=== PATIENT | female | born 1990 | race Caucasian/White ===

== ENCOUNTER → 2019-10-08 09:41 | Outpatient (CLI) | payer BC, SELFPAY ==
--- NOTE | ~2019-10-08 | MR_ITS ---
EXAMINATION: MRA brain wo con DATE: 10/08/2019 10:50 INDICATION: Family history of cerebral aneurysm. TECHNIQUE: Magnetic resonance angiography (MRA) of the brain was performed without intravenous contra st with T1-weighted SPGR by the 3D [id number] technique. Maximum intensity projection 3D-reconstr uctions were obtained. COMPARISON: None. FINDINGS: Left vertebral artery is dominant. There is no significant stenosis of basilar artery or the posterio r cerebral arteries. There is no significant stenosis of the intracranial internal carotid arteries o r anterior or middle cerebral arteries. Anterior communicating artery is normal. The posterior commun icating arteries are normal. There is no aneurysm. IMPRESSION: 1. Normal head MRA. Reviewed, dictated and finalized at location A. IMPRESSION: 1. Normal head MRA.
== END ==
PROVIDERS: PCP Physician Assistant Medical; Visit Provider Physician Assistant Medical
DX: R51 Headache (principal)
CPT/HCPCS: 70544

== ENCOUNTER 2024-07-24 16:33 | Emergency (ER) | payer OTHER, SELFPAY ==
--- NOTE | ~2024-07-24 | XR_ITS ---
XR chest 1V portable Ordering provider: Darci Estevez MD History: 33 years Female with . PALPITATION . Comparison: None. FINDINGS: MEDIASTINUM: The cardiac silhouette is not enlarged. LUNGS: No infiltrates, effusions or pneumothorax. OTHER: No free air under the diaphragm. IMPRESSION: No acute cardiopulmonary pathology Reviewed, dictated and finalized at location A.
--- NOTE | 2024-07-24 16:35 | ECG_ITS ---
Test Date: 2024-07-24 17:14:24 Measurements Intervals [place] Rate: 80 P: 47 [place]: 130 QRS: 54 QRSD: 93 T: 69 QT: 361 QTc: 417 Interpretive Statements SINUS RHYTHM No previous ECG available for comparison Electronically Signed On 07-26-2024 15:13:27 CDT by José Manuel Rome M.D.
--- OUTSIDE RECORDS SUMMARY | 2024-07-24 16:36 | XMS_ITS | Encounter Summary ---
Author Organization [facility] Address [facility] [place] [address] Care Team Providers Care Building Performance Consultant Name Role Phone Yann Gunderson MD Unavailable [phone] Patito Duffy Primary Care Provider [phone] Encounter Details Date Type Department Care Team (Late st Contact Info) Description 04/21/2020 Prep for Procedure [facility] Day Services [address] [place] [address] Concepción Maurer MD [address] [facility] [address] [place] [address] Social History Tobacco Use Types Packs/Day Years Used Date Smoking Tobacco: Never Smokeless Tobacco: Never Alcohol Use Standard Drinks/Week Comments Never 0 (1 standard drink = 0.6 oz pur e alcohol) rare AUDIT-C Answer Date Recorded Frequency of Alcohol Consumption Never 09/29/2018 Average Number of Drinks Not on file 019 Frequency of Binge Drinking Not on file 09/14 Comments No Sex and Gender Information Value Date Recorded Sex Assigned at Not on file Legal Sex Female 8:27 PM CDT Gender Identity Not on file Sexual Orientation Not on file COVID-19 Exposure Response Date Recorded In the last month, have you been in contact with someone who was confirmed or suspected to have Coronavirus / COVID-19? Yes 04/05/2020 2:31 PM CLIENT FINANCE ANALYST documented as of this encounter Plan of Treatment Not on file documented as of this encounter Results * PRE-SURGICAL/PRE-PROCEDURE CORONAVIRUS (COVID 19) (04/25/2020 9:28 AM CLIENT FINANCE ANALYST) CORONAVIRUS SARS COV 2 PCR (RESP) NOT DETECTED NOT DETECTED 04/26/2020 3:30 PM [facility] Comment: A Not Detected (negative) test result for this test means that SARS- CoV-2 RNA was not present in the specimen above the limit of detection. A negative result does not rule out the possibility of COVID-19 and should not be used as the sole basis for treatment or patient management decisions. If COVID-19 is still suspected, based on exposure history together with other clinical findings, re-testing should be considered in consultation with public health authorities. Laboratory test results should always be considered in the context of clinical observations and epidemiological data in making a final diagnosis and patient management decisions. Please review the Fact Sheets and FDA authorized labeling available for health care providers and patients using the following websites: [email or web address]/home/Covid-19/HCP/NAAT/fact-sheet2 https://[email or web address]rippeo/home/Covid-19/Patients/NAAT/ fact-sheet2 This test has been authorized by the FDA under an Emergency Use Authorization (EUA) for use by authorized laboratories. Due to the current public health emergency, [facility] is receiving a high volume of samples from a wide variety of swabs and media for COVID-19 testing. In order to serve patients during this public health crisis, samples from appropriate clinical sources are being tested. Negative test results derived from specimens received in non-commercially manufactured viral collection and transport media, or in media and sample collection kits not yet authorized by FDA for COVID-19 testing should be cautiously evaluated and the patient potentially subjected to extra precautions such as additional clinical monitoring, including collection of an additional specimen. Methodology: Nucleic Acid Amplification Test (NAAT) includes RT-PCR or TMA Additional information about COVID-19 can be found at the [employer] website: [email or web address]/Covid19. Test performed at [facility] [address] [place] [address] Director: TIFFANIE BOLANOS DO,MPH FIRST TEST NO 04/25/2020 9:28 AM [facility] EMPLOYED IN HEALTHCARE NO 04/25/2020 9:28 AM [facility] SYMPTOMATIC DEFINED BY CDC NO 04/25/2020 9:28 AM CLIENT FINANCE ANALYST [facility] DATE OF SYMPTOM ONSET UNKNOWN 04/25/2020 9:36 AM CLIENT FINANCE ANALYST [facility] HOSPITALIZATION STATUS NO 04/25/2020 9:28 AM CLIENT FINANCE ANALYST [facility] PATIENT IN ICU NO 04/25/2020 9:28 AM CLIENT FINANCE ANALYST [facility] RESIDENT OF [facility] NO 04/25/2020 9:28 AM CLIENT FINANCE ANALYST [facility] NOT 04/25/2020 9:28 AM CLIENT FINANCE ANALYST [facility] PATIENT'S RACE WHITE OR 04/25/2020 9:28 AM CLIENT FINANCE ANALYST [facility] ETHNICITY NONHISPANIC 04/25/2020 9:28 AM CLIENT FINANCE ANALYST [facility] SOURCE (QST) NASOPHARYNGEAL SWAB 04/25/2020 9:28 AM CLIENT FINANCE ANALYST [facility] NASOPHARYNGEAL SWAB / Unknown 04/25/2020 9:28 AM CLIENT FINANCE ANALYST W Wiley Maurer MD MICROBIOLOGY - GENERAL ORDERABLES Final Result [facility] [address] [place] [address], [facility] [address] [place] [address], documented in this encounter Visit Diagnoses Diagnosis Preop testing- Primary Preoperative examination, unspecified documented in this encounter Additional Health Concerns Infection Onset Date Last Indicated Resolved Time COVID-19 Rule Out 04/25/2020 04/25/2020 04/26/2020 3:31 PM CLIENT FINANCE ANALYST COVID-19 Rule Out 02/08/2024 02/08/2024 02/08/2024 9:53 AM CLIENT FINANCE ANALYST Influenza - Seasonal 02/08/2024 02/08/2024 024 12:32 AM CLIENT FINANCE ANALYST documented as of this encounter Care Teams Building Performance Consultant Relationship Specialty Start Date End Date Patito Duffy PA [address] [address] PCP - General PHYSICIAN CUSTOMER SUCCESS ADVOCATE 04/05/20 Yann Gunderson MD [address] [address] [place] Property Appraiser CARDIOVASCULAR DISEASE 08/16/15 documented as of this encounter
--- OUTSIDE RECORDS SUMMARY | 2024-07-24 16:36 | XMS_ITS | Encounter Summary ---
Author Organization [facility] Address [facility] [place] [address] Care Team Providers Care Submarine Worker Name Role Phone Rand Basurto Primary Care Provider [phone] Yann Gunderson MD Unavailable Patito Duffy Primary Care Provider [phone] Encounter Details Date Type Department Care Team (Late st Contact Info) Description 11/21/2016 Abstract [facility] CONVERSION [address] [place] [address] , Generic ConversionMD Social History Tobacco Use Types Packs/Day Years Used Date Smoking Tobacco: Never Assessed Comments Unknown Sex and Gender Information Value Date Recorded Sex Assigned at Not on file Legal Sex Female 8:27 PM CDT Gender Identity Not on file Sexual Orientation Not on file documented as of this encounter Plan of Treatment Not on file documented as of this encounter Visit Diagnoses Not on filedocumented in this encounter Additional Health Concerns Infection Onset Date Last Indicated Resolved Time COVID-19 Rule Out 04/25/2020 04/25/2020 04/26/2020 3:31 PM RADIOLOGICAL EQUIPMENT SPECIALIST COVID-19 Rule Out 02/08/2024 02/08/2024 02/08/2024 9:53 AM RADIOLOGICAL EQUIPMENT SPECIALIST Influenza - Seasonal 02/08/2024 02/08/2024 024 12:32 AM RADIOLOGICAL EQUIPMENT SPECIALIST documented as of this encounter Care Teams Submarine Worker Relationship Specialty Start Date End Date Rand Basurto APNP PCP - General NEUROSURGEON 02/21/17 04/04/20 Patito Duffy [facility] [address] [address] PCP - General PHYSICIAN DIAL PRINTER 04/05/20 Yann Gunderson MD [address] [address] [place] Forensic Psychiatrist CARDIOVASCULAR DISEASE 08/16/15 documented as of this encounter
--- OUTSIDE RECORDS SUMMARY | 2024-07-24 16:36 | XMS_ITS | Clinical Summary ---
Author Organization [facility] Address [address] [place] [address] Care Team Providers Care Marine Safety Officer Name Role Phone Yann Gunderson MD Unavailable [phone] Patito Duffy Primary Care Provider [phone] Allergies Active Allergy Reactions Criticality Noted Date Comments Nuts Swelling Medium 10/23/2021 Swelling of tongue, throat Sesame Oil Swelling 02/08/2024 Medications atomoxetine 40 MG capsule Take 60 mg by mouth daily. Active venlafaxine XR 150 MG 24 hr capsule Take 150 mg by mouth daily. 8 Active traZODone 50 MG tablet Take 50 mg by mouth nightly at bedtime. Active melatonin 3 MG tablet Take 3 mg by mouth nightly as needed. Active busPIRone 5 MG tablet Take 5 mg by mouth 3 (three) times daily. Active Probiotic Product (PROBIOTIC ADVANCED) Cap Active gabapentin 100 MG capsule Take 300 mg by mouth daily. Active linaCLOtide (LINZESS) 290 MCG capsuleIndications: Constipation, unspecified constipation type Take 1 capsule (290 mcg total) by mouth every morning before breakfast. Take on empty stomach at least 30 minutes prior to first meal of the day. Swallow whole. Do not open capsule or chew. 30 capsule 1 1 Active ondansetron (ZOFRAN-ODT) 4 MG disintegrating tablet TAKE 1 TABLET BY MOUTH DISSOLVE UNDER TONGUE EVERY 6 HR NEEDED FOR NAUSEA 2 Active rimegepant (NURTEC) 75 MG disintegrating tablet Take 75 mg by mouth as needed for Migraine. Max of 3 tablets (75 mg) in a 24 hour period. Active zolpidem (AMBIEN) 5 MG tablet Take 5 mg by mouth nightly as needed for Sleep. Active ketorolac (TORADOL) 10 MG tablet Take 10 mg by mouth every 6 (six) hours as needed for Pain. Active oxyCODONE-acetamino phen (PERCOCET) 5-325 MG tablet Take 1 tablet by mouth every 4 (four) hours as needed for Pain. Active scopolamine (TRANSDERM-SCOP) 1 MG/3DAYS patch Place 1 patch onto the skin every third day. Active albuterol sulfate HFA 108 (90 Base) MCG/ACT inhaler Inhale 2 puffs into the lungs every 6 (six) hours as needed for Wheezing. 6.7 g 4 Active Active Problems No known active problems Encounters Date Type Department Care Team Description 04/28/2024 Telephone [facility], [address] [address] Maeve Vegas, RMA Consult from Last 3 Months Immunizations Immunization Administration Dates Next Due MODERNA COVID-19 (12+) MRNA, LNP-S, PF, 100 MCG/ 0.5 ML DOSE 07/07/2020,06/09/2020 Family History Medical History Relation Comments hx of aneuysm Other Relation Status Comments Other Social History Tobacco Use Types Packs/Day Years Used Date Smoking Tobacco: Never Smokeless Tobacco: Never Alcohol Use Standard Drinks/Week Comments Yes 0 (1 standard drink = 0.6 oz [...] on file Sexual Orientation Not on file Last Filed Vital Signs Vital Sign Reading Time Taken Comments Blood Pressure 110/68 02/08/2024 10:30 AM SHIPPING LEAD PERSON Pulse 80 02/08/2024 10:30 AM SHIPPING LEAD PERSON Temperature 36.6 C (97.8 F) 02/08/2024 10:30 AM SHIPPING LEAD PERSON Respiratory Rate 18 02/08/2024 10:30 AM SHIPPING LEAD PERSON Oxygen Saturation 100% 02/08/2024 11:00 AM SHIPPING LEAD PERSON Inhaled Oxygen Concentration - - Weight 62.9 kg (138 lb 9.6 oz) 02/08/2024 8:30 A M SHIPPING LEAD PERSON Height 170.8 cm (5' 7.25 ) 02/08/2024 8:30 AM CS T Body Mass Index 21.55 02/08/2024 8:30 AM SHIPPING LEAD PERSON Plan of Treatment Health Maintenance Due Date Last Done Comments Cervical Cancer Screening Pap Smear (Age 30 to 64) Every 3 Years 1990 Annual Physical 1993 Hepatitis C 2008 Cervical Cancer Screening Pap with HPV Testing (Age 30 to 64) Every 5 Years 2020 Cervical Cancer Screening with HPV 2020 DTaP, Tdap and Td Vaccines (8 - Td or Tdap) 02/17/2022 02/18/2012, 12/07/2003, 12/28/1999, Additional history exists COVID-19 Vaccine ( season) 2023 07/07/2020, 06/09/2020 Hepatitis B Vaccines Completed 08/01/2000, 02/01/2000, 12/28/1999 HPV Vaccines Aged Out No longer eligi ble based on patient's age to complete this topic Meningococcal B Vaccine Aged Out No l onger eligible based on patient's age to complete this topic Meningococcal Vaccine Aged Out No chinmay lyndsey eligible based on patient's age to complete this topic Pneumococcal Vaccine: Pediatrics (0 to 5 Years) and At-Risk Patients (6 to 49 Years) Aged Out No longer eligible based on patient's age to complete this topic RSV Immunizations Under 20 Months Aged Out No longer eligible based on patient's age to complete this topic Insurance [place] [id number] Advance Directives * Full Code (Latest Code Status on File) Date Activated Date Inactivated Comments 10/23/2021 11:12 AM 10/23/2021 6:43 PM Care Teams Marine Safety Officer Relationship Specialty Start Date End Date Patito Duffy PA [facility]. [address] [address] PCP - General PHYSICIAN COMMUNITY HEALTH SPECIALIST 04/05/20 Yann Gunderson MD [facility]. [facility] [address] [place] [address] Criselda Roller Stitcher CARDIOVASCULAR DISEASE 08/16/15
--- OUTSIDE RECORDS SUMMARY | 2024-07-24 16:36 | XMS_ITS | Clinical Summary ---
Author Organization [facility] Address [address] [place] [phone] Phone Care Team Providers Care Application Release Manager Name Role Phone Patito Duffy PA-C Primary Care Provider [phone] Allergies Active Allergy Reactions Criticality Noted Date Comments D Lo Swelling Medium 10/03/2021 Of the throat with redness Lactose Diarrhea Low 10/03/2021 Abd cramping Nut Flavor Swelling Medium 10/23/2021 Swelling of tongue, throat Peanut Shortness of Breath/Wheezing High 10/03/2021 my mouth borges Medications venlafaxine (EFFEXOR XR) 150 mg Extended Release 24 hour capsule Take 150 mg by mouth daily. Active atomoxetine (STRATTERA) 40 mg capsule Take 40 mg by mouth daily. Active sertraline (ZOLOFT) 50 mg tablet Take 50 mg by mouth daily. Active cholecalciferol , vitamin D3, 5,000 unit Take 400 Units by mouth daily. Active cholecalciferol 50,000 unit Capsule Take by mouth every 7 days. Active clonazePAM (KlonoPIN) 0.5 mg Tablet Take 1 Tablet (0.5 mg) by mouth 2 times daily as needed for Anxiety. 30 Tablet 06/12/2018 Active QUEtiapine (SEROquel) 50 mg tablet Take 1 Tablet (50 mg) by mouth daily at bedtime. 30 Tablet 06/12/2018 Active zolpidem (AMBIEN) 5 mg tablet Take 1 Tablet (5 mg) by mouth nightly as needed for Insomnia. 30 Tablet 06/12/2018 Active Active Problems Problem Noted Date Diagnosed Date Severe recurrent major depre ssion without psychotic features 06/09/2018 Routine general medical exam ination at a health care facility Social History Tobacco Use Types Packs/Day Years Used Date Smoking Tobacco: Never Smokeless Tobacco: Never Tobacco Cessation:Counseling Given: Not Answered Alcohol Use Standard Drinks/Week Comments Yes 0 (1 standard drink = 0.6 oz pur e alcohol) rarely Feeling Safe Answer Date Recorded Are you in a relationship wi th someone who hurts you emotionally and/or physically? No 05/25/2022 Comments No Sex and Gender Information Value Date Recorded Sex Assigned at Not on file Legal Sex Female 9:10 PM CDT Gender Identity Not on file Sexual Orientation Not on file Last Filed Vital Signs Vital Sign Reading Time Taken Comments Blood Pressure 132/83 05/25/2022 7:13 PM GATE SERVICES SUPERVISOR Pulse 65 05/25/2022 7:13 PM GATE SERVICES SUPERVISOR Temperature 36.4 C (97.6 F) 05/25/2022 7:13 PM GATE SERVICES SUPERVISOR Respiratory Rate 16 05/25/2022 7:13 PM GATE SERVICES SUPERVISOR Oxygen Saturation 100% 05/25/2022 7:13 PM GATE SERVICES SUPERVISOR Inhaled Oxygen Concentration - - Weight 72.6 kg (160 lb) 05/25/2022 7:13 PM GATE SERVICES SUPERVISOR Height 170.2 cm (5' 7 ) 05/25/2022 7:13 PM GATE SERVICES SUPERVISOR Body Mass Index 25.06 05/25/2022 7:13 PM GATE SERVICES SUPERVISOR Plan of Treatment Health Maintenance Due Date Last Done Comments DTAP/TDAP/TD VACCINES (1 - Tdap) 2009 HEPATITIS B VACCINES (1 of 3 - 19+ 3-dose series) 2009 HPV/Cotest (21-29) 09/26/2011 CERVICAL CANCER SCREENING 2020 HPV/Cotest (30-65) 2020 PAP SMEAR 2020 INFLUENZA VACCINE (#1) 2023 COVID-19 Vaccine (2023- season) 2023 07/07/2020, 06/09/2020 HPV VACCINES Aged Out No longer eligi ble based on patient's age to complete this topic Advance Directives For more information, please contact: [phone] * Full Code (Latest Code Status on File) Date Activated Date Inactivated Comments 06/09/2018 3:19 PM 06/12/2018 2:29 PM Care Teams Application Release Manager Relationship Specialty Start Date End Date Patito Duffy PA-C [address] [place] [id number] PCP - General Physician Cutter Brake Lining 06/07/18
--- OUTSIDE RECORDS SUMMARY | 2024-07-24 16:36 | XMS_ITS | Encounter Summary ---
Author Organization [facility] Address [facility] [place] [address] Care Team Providers Care Corn Chip Maker Name Role Phone Sherine Rand [place] Primary Care Provider [phone] Yann Gunderson MD Unavailable Patito Duffy Primary Care Provider [phone] Encounter Details Date Type Department Care Team (Late st Contact Info) Description 03/12/2017 [facility], [address] [address] Codie Napoles MA Social History Tobacco Use Types Packs/Day Years Used Date Smoking Tobacco: Never Smokeless Tobacco: Never Alcohol Use Standard Drinks/Week Comments Yes 0 (1 standard drink = 0.6 oz pur e alcohol) rare Comments Unknown Sex and Gender Information Value Date Recorded Sex Assigned at Not on file Legal Sex Female 8:27 PM CDT Gender Identity Not on file Sexual Orientation Not on file documented as of this encounter Plan of Treatment Not on file documented as of this encounter Procedures Procedure Name Priority Date/Time Associated Diagnosis Comments ESR (OUTSIDE LAB) Routine 11/05/2016 CBC (OUTSIDE LAB) Routine 11/05/2016 COMPREHENSIVE METABOLIC PANEL Routine 11/05/2016 documented in this encounter Results * CBC (OUTSIDE LAB) (11/05/2016) WBC 5.3 HGB 12.8 HCT 37.3 PLT 240 11/05/2016 us [facility] LAB-OUTSIDE/ABSTRACTED Final Result * ESR (OUTSIDE LAB) (11/05/2016) SED RATE 2 0 - 20 mm/hr 11/05/2016 us Doc [facility] LAB-OUTSIDE/ABSTRACTED Final Result * (ABNORMAL) COMPREHENSIVE METABOLIC PANEL (11/05/2016) SODIUM S/P/B 140 POTASSIUM S/P/B 4.1 CO2 26 CHLORIDE S/P/B 105 GLUCOSE 83 mg/dL CALCIUM S/P/B 9.2 BUN 10 CREATININE S/P/B 0.68 0.5 - 1.0 EGFR AFR. AMER. 140(A) <=90 EGFR NON-AFR. AMER. 121(A) <=90 ALKALINE PHOSPHATASE S/P/B 53 ALT 13 AST 17 BILIRUBIN TOTAL S/P/B 0.4 ALBUMIN S/P/B 4.3 3.5 - 5.0 TOTAL PROTEIN S/P/B 6.8 GLOBULIN 2.5 11/05/2016 us Doc [facility] LABORATORY Edited Resul t - Final documented in this encounter Visit Diagnoses Not on filedocumented in this encounter Additional Health Concerns Infection Onset Date Last Indicated Resolved Time COVID-19 Rule Out 04/25/2020 04/25/2020 04/26/2020 3:31 PM ARRT TECHNOLOGIST COVID-19 Rule Out 02/08/2024 02/08/2024 02/08/2024 9:53 AM ARRT TECHNOLOGIST Influenza - Seasonal 02/08/2024 02/08/2024 024 12:32 AM ARRT TECHNOLOGIST documented as of this encounter Care Teams Corn Chip Maker Relationship Specialty Start Date End Date Rand Basurto APNP PCP - General TUBE CLEANER 02/21/17 04/04/20 Patito Duffy PA [address] [address] PCP - General PHYSICIAN LOCKSTITCH BACK MAKER 04/05/20 Yann Gunderson MD [address] [address] [place] Display Carver CARDIOVASCULAR DISEASE 08/16/15 documented as of this encounter
[2024-07-24 16:58] VITALS: BP 110/70; PULSE 91; RESP 14; TEMP 37.1; O2SAT 100
--- NOTE | 2024-07-24 17:38 | ED_ITS ---
HPI - Arrhythmia/Palpitations General Chief Complaint: Arrhythmia/Palpitations Stated Complaint: Palpitations x 3 days, extreme fatigue Time Seen by Provider: 07/24/24 17:36 Source: patient and family Mode of arrival: ambulatory Limitations: no limitations History of Present Illness HPI narrative: 33 YEARS OLD WHITE FEMALE CAME TO THE ED BY PRIVATE CAR FROM HOME WITH HER MOM COMPLAINING OF INTERMITTENT CHEST PAIN AND PALPITATION FOR A WHILE. PATIENT REPORT THAT PALPATING HER CAROTID PULSE FEELING FAST. PATIENT DENIES ANY FEVER, CHILLS, NAUSEA, VOMITING, SHORTNESS OF BREATH. Related Data Home Medications ?Medication ?Instructions ?Recorded ?Confirmed ?Last Taken ?Type buspirone 15 mg tablet 15 mg PO BID 03/12/22 04/21/24 Unknown History venlafaxine 150 mg 150 mg PO DAILY 03/12/22 04/21/24 Unknown History capsule,extended release 24 hr venlafaxine 75 mg capsule,extended 75 mg PO DAILY 03/12/22 04/21/24 Unknown History release 24 hr albuterol sulfate 90 mcg/actuation 1 puff inhalation Q4H PRN 02/20/24 04/21/24 Unknown History aerosol inhaler trazodone 50 mg tablet 50 mg PO QHS 07/07/24 Unknown History Allergies Allergy/AdvReac Type Severity Reaction Status Date / Time duloxetine Allergy Other Verified 04/21/24 13:02 nuts Allergy Anaphylaxis Uncoded 04/21/24 13:02 Review of Systems 2 Review of Systems: All systems reviewed & are unremarkable except as noted in HPI and below PMFSH Past Medical History Medical History Post concussion syndrome Gastroparesis Viral gastroenteritis Dissocial personality disorder Chronic idiopathic constipation Javier-Danlos disease PTSD (post-traumatic stress disorder) Anxiety and depression ADHD BMI 27.0-27.9,adult Hypermobility syndrome Hypermobility spectrum disorder Surgical History Surgical History History of colonoscopy 2020 H/O: hysterectomy History of esophagogastroduodenoscopy (EGD) .17- Dr. Keegan Castillo [place] teeth removed 05-20-16, Dr. 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 MUSCULOSKELETAL: NORMAL RANGE OF MOTION, NONTENDER BACK NEUROLOGIC: ALERT AND ORIENTED ?3, PIPELINE INTEGRITY ENGINEER IS NORMAL TESTED, NO GROSS MOTOR DEFICIT Course Vital Signs Vital signs: Vital Signs Temperature 37.1 C 07/24/24 16:58 Pulse Rate 91 07/24/24 16:58 Respiratory Rate 14 07/24/24 16:58 Blood Pressure 110/70 07/24/24 16:58 Pulse Oximetry 100 07/24/24 16:58 Oxygen Delivery Room Air 07/24/24 16:58 Temperature 37.1 C 07/24/24 16:58 Pulse Rate 91 07/24/24 16:58 Respiratory Rate 14 07/24/24 16:58 Blood Pressure 110/70 07/24/24 16:58 Pulse Oximetry 100 07/24/24 16:58 Oxygen Delivery Room Air 07/24/24 16:58 MDM - Arrhythmia/Palpitations MDM Narrative Medical decision making narrative: PATIENT CAME WITH CHEST PAIN AND PALPITATION, HISTORY OF ANXIETY AND DEPRESSION VITAL SIGNS ARE STABLE PHYSICAL EXAMINATION INSIGNIFICANT DIFFERENTIAL DIAGNOSIS ANXIETY, DEPRESSION, STRESS RELATED SYMPTOMS, CARDIAC ARRHYTHMIA, ELECTROLYTE IMBALANCE, DEHYDRATION, HYPERTHYROIDISM. BLOOD WORKUP TODAY INCLUDES CBC, CMP, TROPONIN, TSH SHOWED INSIGNIFICANT ABNORMALITY URINALYSIS SHOWED NO SIGNIFICANT ABNORMALITY CHEST X-RAY SHOWED NO ACUTE ABNORMALITY EKG ON ARRIVAL SHOWED NORMAL SINUS RHYTHM AT 80 BEATS PER MINUTE, NORMAL EKG, NO PREVIOUS EKG AVAILABLE FOR COMPARISON DIAGNOSIS PALPITATION/CHEST PAIN HIGH LIKELY SECONDARY TO STRESS/ANXIETY. FOLLOW-UP WITH LICENSED FINAL EXPENSE AGENTS THE PT WAS DISCHARGED TO HOME.THE PT,S CONDITION UPON DISCHARGE WAS FAIR,EDUCATION WAS PROVIDED TO THE PT IN REFERENCE TO THE FINAL IMPRESSION,DISCHARGE STUDY RESULTS,TREATMENT,PROGNOSIS AND NEED FOR FOLLOW UP . Differential Diagnosis Differential diagnosis: Likely palpitations, anxiety, sinus tachycardia, artial fibrillation, artial flutter, ventricular premature beats and supraventricular tachycardia Medical Records Attestation: I reviewed the patient's medical records. Lab Data Attestation: I reviewed the patient's lab results. 07/24/24 18:04 07/24/24 18:04 Labs: Lab Results 07/24/24 07/24/24 Range/Units 18:04 18:17 WBC 6.2 (4.5-10.0) K/mm3 RBC 3.65 L (4.2-5.4) M/mm3 Hgb 11.1 L (12.0-15.0) g/dL Hct 34.7 L (37.0-47.0) % MCV 95.1 (80-100) fl MCH 30.4 (26-34) pg MCHC 32.0 (32-36) g/dl RDW 12.8 (11.5-14.5) % Plt Count 217 (150-375) k/mm3 MPV 9.0 (7.4-10.4) fl Immature Gran % (Auto) 0.3 (0-0.5) % Neut % (Auto) 56.1 (45.5-73.1) % Lymph % (Auto) 36.6 (18.3-44.2) % [place] % (Auto) 5.7 (2.6-8.5) % Eos % (Auto) 0.8 (0-4.4) % Baso % (Auto) 0.5 (0.2-1.2) % Lymph # (Auto) 2.26 (0.9-3.2) K/mm3 [place] # (Auto) 0.4 (0.1-0.6) K/mm3 Eos # (Auto) 0.1 (0-0.3) K/mm3 Baso # (Auto) 0.0 (0.0-0.1) K/mm3 Abs Immat Gran (auto) 0.02 (0.00-0.031) K/mm3 Absolute Neuts (auto) 3.5 (1.3-6.7) K/mm3 Absolute Nucleated RBC 0.000 (0.0-0.012) K/mm3 Nucleated RBC % 0.0 (0.0-0.2) % Sodium 137 (137-145) mmol/L Potassium 3.7 (3.4-5.0) mmol/L Chloride 105 (98-107) mmol/L Carbon Dioxide 26 (22-30) mmol/L Anion Gap 6 (4-12) mmol/L BUN 11 (7-17) mg/dL Creatinine 0.70 (0.7-1.0) mg/dL Estim Creat Clear Calc 92 ml/min Estimated GFR > 60 (59 - ) Glucose 85 (65-110) mg/dL Calcium 8.2 L (8.4-10.2) mg/dL Total Bilirubin 0.2 (0.2-1.3) mg/dL AST 20 (14-36) U/L ALT 12 (6-35) U/L Alkaline Phosphatase 51 (38-126) U/L Troponin I < 0.012 (0.000-0.034) ng/mL NT-Pro-B Natriuret Pep < 20 (19.9-100) pg/mL Total Protein 6.0 L (6.3-8.2) g/dL Albumin 3.8 (3.5-5.1) g/dL TSH Pending Urine Color Yellow (Yellow) Urine Appearance Cloudy H (Clear) Urine pH 7.5 (5.0-9.0) Ur Specific [place] 1.014 (1.001-1.035) Urine Protein Negative (Negative) mg/dL Urine Glucose (UA) Negative (Negative) mg/dL Urine Ketones Negative (Negative) mg/dL Ur Blood (Man) Negative (Negative) Urine Nitrate Negative (Negative) Urine Bilirubin Negative (Negative) Urine Urobilinogen 2.0 H (<2.0) mg/dL Leukocyte Esterase Rfl Negative (Negative) KATHY/UL Urine RBC 3-5 H (0-2) /hpf Urine WBC 0-5 (0-3) /hpf Ur Squamous Epith Cells None seen (Few) /hpf Urine Bacteria None seen /hpf Urine Casts 0-2 Urine Opiates Screen Pending Urine Methadone Screen Pending Ur Barbiturates Screen Pending Ur Phencyclidine Scrn Pending Ur Amphetamine Screen Pending U Benzodiazepines Scrn Pending Urine Cocaine Screen Pending U Cannabinoids Screen Pending Imaging Data Radiologist's impression: Impressions Chest X-Ray 07/24/24 17:51 IMPRESSION: No acute cardiopulmonary pathology ECG Data EKG #1: Attestation: I personally reviewed and interpreted this ECG as follows: Interpretation: NORMAL SINUS RHYTHM AT 80 BEATS PER MINUTE, NORMAL EKG, NO PREVIOUS EKG AVAILABLE FOR COMPARISON Critical Care Time Critical Care Time Critical Care Time: No Discharge Plan Discharge Clinical Impression: Palpitations, Atypical chest pain Patient Disposition: Home Condition: Stable Instructions: Chest Pain (DC), Heart Palpitations (DC) Patient Language: Bahamian Prescriptions: No Action venlafaxine 150 mg capsule,extended release 24hr 150 mg PO DAILY venlafaxine 75 mg capsule,extended release 24hr 75 mg PO DAILY buspirone 15 mg tablet 15 mg PO BID albuterol sulfate 90 mcg/actuation HFA aerosol inhaler 1 puff inhalation Q4H PRN ondansetron 4 mg tablet,disintegrating 4 mg PO Q6-8H PRN (Reason: nausea and vomiting) Qty: 20 0RF Nurtec ODT 75 mg tablet,disintegrating 75 mg PO ONCE PRN (Reason: migraine headache) Qty: 10 0RF Rx Instructions: as a single dose epinephrine [EpiPen 2-Micky] 0.3 mg/0.3 mL auto-injector 0.3 mg IM ONCE Qty: 2 0RF Rx Instructions: as a single dose; may repeat once trazodone 50 mg tablet 50 mg PO QHS Rx Instructions: psych memantine [Namenda] 5 mg tablet 5 mg PO BID Qty: 90 0RF Rx Instructions: psych atomoxetine 60 mg capsule 60 mg PO DAILY Qty: 7 0RF Follow-up/Referrals: Patito Duffy PA-C [Primary Care Provider] - Melissa Joseph MD [Physician] - 07/26/24
--- OUTSIDE RECORDS SUMMARY | 2024-07-24 17:43 | XMS_ITS | Clinical Summary ---
Author Organization [facility] Address [address] [place] [address] Care Team Providers Care Dental Assistant Name Role Phone Yann Gunderson MD Unavailable [phone] Patito Duffy Primary Care Provider [phone] Allergies Active Allergy Reactions Criticality Noted Date [...] Type Department Care Team Description 04/28/2024 Telephone [facility], [address] [address] Maeve [place], RMA Consult from [...] Comments Blood Pressure 110/68 02/08/2024 10:30 AM COLLECTION TELLER Pulse 80 02/08/2024 10:30 AM COLLECTION TELLER Temperature 36.6 C (97.8 F) 02/08/2024 10:30 AM COLLECTION TELLER Respiratory Rate 18 02/08/2024 10:30 AM COLLECTION TELLER Oxygen Saturation 100% 02/08/2024 11:00 AM COLLECTION TELLER Inhaled Oxygen Concentration - - Weight 62.9 kg (138 lb 9.6 oz) 02/08/2024 8:30 A M COLLECTION TELLER Height 170.8 cm (5' 7.25 ) 02/08/2024 8:30 AM CS T Body Mass Index 21.55 02/08/2024 8:30 AM COLLECTION TELLER Plan of Treatment Health Maintenance Due Date [...] to complete this topic Insurance MARTELL ARROYO [id number] Advance Directives * Full Code (Latest Code Status on File) Date Activated Date Inactivated Comments 10/23/2021 11:12 AM 10/23/2021 6:43 PM Care Teams Dental Assistant Relationship Specialty Start Date End Date Patito Duffy PA [facility]. [address] [address] PCP - General PHYSICIAN CIRCULATION REPRESENTATIVE 04/05/20 Yann Gunderson MD [facility]. [facility] [address] [place] [address] Criselda Manager Quality Systems CARDIOVASCULAR DISEASE 08/16/15
--- OUTSIDE RECORDS SUMMARY | 2024-07-24 17:43 | XMS_ITS | Encounter Summary ---
Author Organization [facility] Address Critical access hospital[address] [place] [address] Care Team Providers Care Electronic Assembly Name Role Phone Yann Gunderson MD Unavailable [phone] Patito Duffy Primary Care Provider [phone] Encounter Details Date Type Department Care Team (Late st Contact Info) Description 04/21/2020 Prep for Procedure [facility] [address] [place] [address] Concepción Maurer MD [address] [facility] [address] [place] [address] Social History Tobacco Use Types [...] Coronavirus / COVID-19? Yes 04/05/2020 2:31 PM SECURITY INCIDENT HANDLER documented as of this encounter Plan of Treatment Not on file documented as of this encounter Results * PRE-SURGICAL/PRE-PROCEDURE CORONAVIRUS (COVID 19) (04/25/2020 9:28 AM SECURITY INCIDENT HANDLER) CORONAVIRUS SARS COV 2 PCR (RESP) NOT DETECTED NOT DETECTED 04/26/2020 3:30 PM [facility] Comment: A Not Detected (negative) [...] providers and patients using the following websites: https://www.[employer]Cloud [employer]/home/Covid-19/HCP/NAAT/fact-sheet2 https://www.[employer]/home/Covid-19/Patients/NAAT/ fact-sheet2 This test has been authorized by the FDA under an Emergency Use Authorization (EUA) for use by authorized laboratories. Due to the current public health emergency, [facility] is receiving a high volume of samples [...] about COVID-19 can be found at the [facility] website: www.[employer].Cloud 66/Covid19. Test performed at [facility] [place] [address] [place] [address] Director: TIFFANIE BOLANOS DO,MPH FIRST TEST NO 04/25/2020 9:28 AM [facility] EMPLOYED IN HEALTHCARE NO 04/25/2020 9:28 AM [facility] SYMPTOMATIC DEFINED BY CDC NO 04/25/2020 9:28 AM SECURITY INCIDENT HANDLER [facility] DATE OF SYMPTOM ONSET UNKNOWN 04/25/2020 9:36 AM SECURITY INCIDENT HANDLER [facility] HOSPITALIZATION STATUS NO 04/25/2020 9:28 AM SECURITY INCIDENT HANDLER [facility] PATIENT IN ICU NO 04/25/2020 9:28 AM SECURITY INCIDENT HANDLER [facility] RESIDENT OF [facility] NO 04/25/2020 9:28 AM SECURITY INCIDENT HANDLER [facility] NOT 04/25/2020 9:28 AM SECURITY INCIDENT HANDLER [facility] PATIENT'S RACE WHITE OR 04/25/2020 9:28 AM SECURITY INCIDENT HANDLER [facility] ETHNICITY NONHISPANIC 04/25/2020 9:28 AM SECURITY INCIDENT HANDLER [facility] SOURCE (QST) NASOPHARYNGEAL SWAB 04/25/2020 9:28 AM SECURITY INCIDENT HANDLER [facility] NASOPHARYNGEAL SWAB / Unknown 04/25/2020 9:28 AM SECURITY INCIDENT HANDLER W Wiley Maurer MD MICROBIOLOGY - GENERAL ORDERABLES Final Result [facility] [address] [place] [address], [facility] [address] [place] [address], documented in this encounter Visit Diagnoses Diagnosis Preop testing- Primary Preoperative examination, unspecified documented in this encounter Additional Health Concerns Infection Onset Date Last Indicated Resolved Time COVID-19 Rule Out 04/25/2020 04/25/2020 04/26/2020 3:31 PM SECURITY INCIDENT HANDLER COVID-19 Rule Out 02/08/2024 02/08/2024 02/08/2024 9:53 AM SECURITY INCIDENT HANDLER Influenza - Seasonal 02/08/2024 02/08/2024 024 12:32 AM SECURITY INCIDENT HANDLER documented as of this encounter Care Teams Electronic Assembly Relationship Specialty Start Date End Date Patito Duffy PA [address] [address] PCP - General PHYSICIAN LEAD CONSULTANT 04/05/20 Yann Gunderson MD [address] [address] [place] Mud Mixer CARDIOVASCULAR DISEASE 08/16/15 documented as of this encounter
--- OUTSIDE RECORDS SUMMARY | 2024-07-24 17:43 | XMS_ITS | Encounter Summary ---
Author Organization [facility] Address [facility] [place] [address] Care Team Providers Care Metal Drawer Name Role Phone Sherine Rand [place] Primary Care Provider [phone] Yann Gunderson MD Unavailable [phone] Patito Duffy Primary Care Provider [phone] Encounter Details Date Type Department Care Team (Late st Contact Info) Description 03/12/2017 [facility], [address] [address] Codie Napoles MA Social History Tobacco Use [...] Rule Out 04/25/2020 04/25/2020 04/26/2020 3:31 PM CHOCOLATE PACKER COVID-19 Rule Out 02/08/2024 02/08/2024 02/08/2024 9:53 AM CHOCOLATE PACKER Influenza - Seasonal 02/08/2024 02/08/2024 024 12:32 AM CHOCOLATE PACKER documented as of this encounter Care Teams Metal Drawer Relationship Specialty Start Date End Date Rand Basurto APNP PCP - General MAJOR CASE DETECTIVE 02/21/17 04/04/20 Patito Duffy PA [address] [address] PCP - General PHYSICIAN SENIOR ANALYST MARKET INTELLIGENCE 04/05/20 Yann Gunderson MD [address] [address] [place] C Wpf Developer CARDIOVASCULAR DISEASE 08/16/15 documented as of this encounter
--- OUTSIDE RECORDS SUMMARY | 2024-07-24 17:43 | XMS_ITS | Clinical Summary ---
Author Organization [facility] Address [address] [place] [address] Phone Care Team Providers Care Meteorology Faculty Member Name Role Phone Patito Duffy PA-C Primary Care Provider [phone] Allergies Active Allergy Reactions Criticality Noted Date Comments Calvin Swelling Medium 10/03/2021 Of the throat with [...] Comments Blood Pressure 132/83 05/25/2022 7:13 PM SUPERVISOR DOCK Pulse 65 05/25/2022 7:13 PM SUPERVISOR DOCK Temperature 36.4 C (97.6 F) 05/25/2022 7:13 PM SUPERVISOR DOCK Respiratory Rate 16 05/25/2022 7:13 PM SUPERVISOR DOCK Oxygen Saturation 100% 05/25/2022 7:13 PM SUPERVISOR DOCK Inhaled Oxygen Concentration - - Weight 72.6 kg (160 lb) 05/25/2022 7:13 PM SUPERVISOR DOCK Height 170.2 cm (5' 7 ) 05/25/2022 7:13 PM SUPERVISOR DOCK Body Mass Index 25.06 05/25/2022 7:13 PM SUPERVISOR DOCK Plan of Treatment Health Maintenance Due Date [...] Advance Directives For more information, please contact: [phone] * Full Code (Latest Code Status on File) Date Activated Date Inactivated Comments 06/09/2018 3:19 PM 06/12/2018 2:29 PM Care Teams Meteorology Faculty Member Relationship Specialty Start Date End Date Patito Duffy PA-C [address] [place] [phone] PCP - General Physician Resource Director 06/07/18
--- OUTSIDE RECORDS SUMMARY | 2024-07-24 17:43 | XMS_ITS | Encounter Summary ---
Author Organization [facility] Address [facility] [place], [place] Care Team Providers Care Tie Worker Name Role Phone Rand Basurto Primary Care Provider [phone] Yann Gunderson MD Unavailable [phone] Patito Duffy Primary Care Provider Encounter Details Date Type Department Care Team (Late st Contact Info) Description 11/21/2016 Abstract [facility] CONVERSION [address] [place] [address] , Generic ConversionMD Social History Tobacco Use [...] Rule Out 04/25/2020 04/25/2020 04/26/2020 3:31 PM ARMORED TRANSPORT SERVICE MANAGER COVID-19 Rule Out 02/08/2024 02/08/2024 02/08/2024 9:53 AM ARMORED TRANSPORT SERVICE MANAGER Influenza - Seasonal 02/08/2024 02/08/2024 024 12:32 AM ARMORED TRANSPORT SERVICE MANAGER documented as of this encounter Care Teams Tie Worker Relationship Specialty Start Date End Date Rand Basurto APNP PCP - General POULTRY FARM MANAGER 02/21/17 04/04/20 Patito Duffy PA [facility] [address] [address] PCP - General PHYSICIAN BRICK CATCHER 04/05/20 Yann Gunderson MD [address] [address] [employer] [employer] Report Service Sales Agent CARDIOVASCULAR DISEASE 08/16/15 documented as of this encounter
[2024-07-24 18:11] LABS: Basophils Percent Auto 0.5 % (0.2-1.2); Eosinophils Absolute Auto 0.1 K/mm3 (0-0.3); Eosinophils Percent Auto 0.8 % (0-4.4); Hematocrit 34.7 % (37.0-47.0); Hemoglobin 11.1 g/dL (12.0-15.0); Immature Granulocyte Absolute 0.02 K/mm3 (0.00-0.031); Immature Granulocyte Percent A 0.3 % (0-0.5); Lymphocytes Absolute Auto 2.26 K/mm3 (0.9-3.2); Lymphocytes Percent Auto 36.6 % (18.3-44.2); Mean Corpuscular Hemoglobin 30.4 pg (26-34); Mean Corpuscular Volume 95.1 fl (80-100); Monocytes Absolute Auto 0.4 K/mm3 (0.1-0.6); Monocytes Percent Auto 5.7 % (2.6-8.5); Neutrophils Absolute Auto 3.5 K/mm3 (1.3-6.7); Neutrophils Percent Auto 56.1 % (45.5-73.1); Platelet Count Result 217 k/mm3 (150-375); Red Blood Count 3.65 M/mm3 (4.2-5.4); Red Cell Distribution Width 12.8 % (11.5-14.5); White Blood Count 6.2 K/mm3 (4.5-10.0)
[2024-07-24 18:20] LABS: Alanine Aminotransferase 12 U/L (6-35); Albumin Level 3.8 g/dL (3.5-5.1); Alkaline Phosphatase 51 U/L (38-126); Anion Gap 6 mmol/L (4-12); Aspartate Amino Transferase 20 U/L (14-36); Bilirubin,Total 0.2 mg/dL (0.2-1.3); Blood Urea Nitrogen 11 mg/dL (7-17); Calcium 8.2 mg/dL (8.4-10.2); Carbon Dioxide 26 mmol/L (22-30); Chloride 105 mmol/L (98-107); Estimated CRCL calculation 92 ml/min; Estimated Glomerular Filt Rate > 60; Glucose 85 mg/dL (65-110); Potassium 3.7 mmol/L (3.4-5.0); Sodium 137 mmol/L (137-145)
[2024-07-24 18:38] LABS: NT Pro B Type Natriuretic Pept < 20 pg/mL (19.9-100); Troponin I < 0.012 ng/mL (0.000-0.034)
[2024-07-24 18:45] LABS: Add Urine Microscopic? YES; Appearance Urine Cloudy (Clear); Bacteria Urine None Seen /hpf; Bilirubin Urine Negative (Negative); Blood Urine Negative (Negative); Color Urine Yellow (Yellow); Glucose Urine UA Negative (Negative); Ketones Urine Negative (Negative); Leukocyte Esterase Ur Negative LEU/UL (Negative); Nitrate Urine Negative (Negative); Non Pathogenic Casts 0-2; Protein Urine Negative (Negative); Specific Grav Ur 1.014 (1.001-1.035); Squamous Epithelial Cell Urine None Seen /hpf (Few); WBC Urine 0-5 /hpf (0-3); pH Urine 7.5 (5.0-9.0)
[2024-07-24 19:05] LABS: Amphetamine Screen Urine Negative (Negative); Barbiturate Screen Urine Negative (Negative); Benzodiazepines Screen Urine Negative (Negative); Cannabinoid Screen Urine Negative (Negative); Cocaine Screen Urine Negative (Negative); Methadone Screen Urine Negative (Negative); Opiate Screen Urine Negative (Negative); Phencyclidine Screen Urine Negative (Negative)
== END 2024-07-24 19:12 | disposition home or self-care (01) ==
PROVIDERS: Emergency Provider Emergency Medicine; PCP Physician Assistant Medical
DX: R00.2 Palpitations (principal); R07.89 Other chest pain; F41.8 Other specified anxiety disorders; Q79.60 Ehlers-Danlos syndrome, unspecified
CPT/HCPCS: 36415; 71045; 80053; 80307; 81001; 83880; 84443; 84484; 85025; 93005; 99284